=== PATIENT | male | born 1955 | race African-American/Black ===

== ENCOUNTER → 2016-06-16 | Outpatient (CLI) | payer BC ==
[~2016-06-16] MED LIST: NOHOMEMEDS; PREDNISONE20 MG PO; PREDNISONE50 MG PO; PROVENTIL,2.5 MG/3 M IH; ZITHROMAX Z-PA250 MG PO
== END | disposition home or self-care (01) ==
LOC: RES 09:51
DX: J44.9 Chronic obstructive pulmonary disease, unspecified (principal)
CPT/HCPCS: 94060; 94727; 94729